=== PATIENT | female | born 2005 | race Caucasian/White ===

== ENCOUNTER 2025-04-23 12:42 | Emergency (ER) | payer SELFPAY ==
[~2025-04-23] VITALS: Ht 165.1 cm; Wt 75.0 kg
[2025-04-23 13:47] VITALS: O2SAT 98
[2025-04-23 14:29] VITALS: BP 119/72; PULSE 89; RESP 15; TEMP 36.8; O2SAT 98
== END 2025-04-23 14:30 | disposition home or self-care (01) ==
LOC: ER 12:42
DX: S09.90XA Unspecified injury of head, initial encounter (principal); W22.8XXA Striking against or struck by other objects, initial encounter; Y93.89 Activity, other specified; Y92.89 Other specified places as the place of occurrence of the external cause; Y99.8 Other external cause status
CPT/HCPCS: 99282